=== PATIENT | male | born 1995 | race Caucasian/White ===

== ENCOUNTER 2020-05-07 17:06 | Emergency (ER) | payer OTHER, SELFPAY ==
--- NOTE | ~2020-05-07 | XR_ITS ---
EXAMINATION: XR hand RT min 3V EXAM DATE: 05/07/2020 17:38 INDICATION: Punched glass window, laceration 4th and 5th digits right hand. TECHNIQUE: Right hand frontal, lateral and oblique projections obtained and reviewed. There is no pr ior study for comparison. FINDINGS: Right metacarpal bones are unremarkable. There are no acute fractures or dislocations iden tified. There is no subcutaneous gas. Probable identification of laceration over the 4th and 5th mi ddle phalanges . There are no radiopaque foreign bodies. Ulnar styloid appearance consistent with e ither an old ulnar styloid base avulsion fracture with nonunion, or congenital segmentation IMPRESSION: Lacerations. No fracture or foreign body identified Reviewed, dictated and finalized at location A. R [employer]
[2020-05-07 17:20] VITALS: BP 138/69; PULSE 76; RESP 18; TEMP 36.6; O2SAT 100
--- NOTE | 2020-05-07 17:26 | ED.WOUNDLAC ---
HPI - Wound/Laceration General Chief Complaint: Wound/Laceration Stated Complaint: Laceration on fingers Source: patient and RN notes reviewed Limitations: no limitations History of Present Illness HPI narrative: The right-handed patient, mostly healthy with immunizations UTD, presents with hand laceration. Patient states he punched a window with a generally closed fist resulting in lacerations. He complains of mild pain and bleeding that is worse with motion, better at rest or elevation --especially from the extensor, PIPJ creases of his ring and small fingers. He denies numbness, weakness nor FB sensation now, after he washed and removed some particles of glass. Related Data Allergies Allergy/AdvReac Type Severity Reaction Status Date / Time No Known Allergies Allergy Verified 05/07/20 17:33 Review of Systems Review of Systems: Narrative: General/Constitutional: No weight loss,fever Eyes: N0: Redness,discharge Ears/Nose/Throat: No: Epistaxis,ear discharge Respiratory: Denies: Hemoptysis Gastrointestinal: No Vomiting, Bleeding-rectal Skin: No Lumps, eruption Neurologic: No Focal Weakness,Sz Hematologic: Denies: Petechiae/Purpura Psychiatric: No: Suicida ideationl All Other Systems: Reviewed and Negative PMFSH Comments At time of signature, agree with nursing past medical, surgical, social and family history. There is no relevant family history pertinent to the presenting complaint Exam Narrative: Exam Narrative: General Appearance: Well appearing, Conjunctiva clear Ears: External ear normal, Auditory canal normal Nose: Normal nose, Nares clear Mouth/Throat: Normal appearing, Normal lips Neck: Supple Respiratory: Airway patent, No respiratory distress MS-fingers: Normal strength (mostly intact, limited flexion/extension by pain), Tenderness (extensor, with mild decreased ROM), no swelling , Other (no anterior drawer, no collateral laxity) Skin: Warm, Dry, Normal color, laceration [described in procedure note] Neurological: A&O x3, Normal affect Course Course Emergency Course: Films visualized, interpreted by radiologist, agree, normal see report Vital Signs Vital signs: Vital Signs Temperature 97.8 F 05/07/20 17:20 Pulse Rate 76 05/07/20 17:20 Respiratory Rate 18 05/07/20 17:20 Blood Pressure 138/69 05/07/20 17:20 Pulse Oximetry 100 05/07/20 17:20 Temperature 97.8 F 05/07/20 17:20 Pulse Rate 76 05/07/20 17:20 Respiratory Rate 18 05/07/20 17:20 Blood Pressure 138/69 05/07/20 17:20 Pulse Oximetry 100 05/07/20 17:20 Procedures Laceration Laceration 1: Date: 05/07/20 Site: hand (ring finger) Side (If applicable): right Size (cm): 0.75 Description: linear (longitudinal at proximal middle phalanges) Depth: simple, single layer Local Anesthetic: other anesthetic (LET) Pre-repair: irrigated extensively ====== Skin Level ====== Skin layer closed with: nylon Size (cm): 5-0 Number of sutures: 3 Technique: simple, interrupted ====== Subcutaneous Layer ====== ====== Muscle Layer ====== ====== Tendon Layer ====== Laceration 2: Date: 05/07/20 Site: hand (small finger) Side (If applicable): left Size (cm): 1 Description: other (upside T shape, at proximal middle phalanges) Depth: simple, single layer Local Anesthetic: other anesthetic (LET) Amount of anesthesia used (mL): 3 Pre-repair: irrigated extensively ====== Skin Level ====== Skin layer closed with: nylon Size (cm): 5-0 Technique: simple, interrupted ====== Subcutaneous Layer ====== ====== Muscle Layer ====== ====== Tendon Layer ====== Discharge Plan Discharge Clinical Impression: Laceration of finger of right hand Patient Disposition: Home, Self-Care Condition: Stable Instructions: Marie
--- NOTE | 2020-05-07 17:50 | PC.NURSE ---
LET gel applied by provider
== END 2020-05-07 18:28 | disposition home or self-care (01) ==
PROVIDERS: Emergency Provider Emergency Medicine; PCP Internal Medicine
DX: S61.214A Laceration without foreign body of right ring finger without damage to nail, initial encounter (principal); S61.217A Laceration without foreign body of left little finger without damage to nail, initial encounter; W25.XXXA Contact with sharp glass, initial encounter
CPT/HCPCS: 12001; 73130; 99213; G0463